=== PATIENT | male | born 1965 | race Caucasian/White ===

== ENCOUNTER 2022-01-27 18:58 | Emergency (ER) | payer MEDICARE ==
[2022-01-27] MEDS ORDERED: CEPHALEXIN500 MG PO (20:10)
== END 2022-01-27 20:18 | disposition home or self-care (01) ==
LOC: FER 18:58
DX: L03.113 Cellulitis of right upper limb (principal); I10 Essential (primary) hypertension; E11.9 Type 2 diabetes mellitus without complications
CPT/HCPCS: 99283